=== PATIENT | male | born 1990 | race Caucasian/White ===

== ENCOUNTER 2017-10-27 03:15 | Inpatient (IN) | payer MEDICAID, OTHER ==
[~2017-10-27] VITALS: Ht 182.9 cm; Wt 86.2 kg
[2017-10-27] MEDS ORDERED: LIDOCAINE HCL 1%/EPI 1:200,000/PF 10 ML VIAL INJ ONE (03:45)
[2017-10-27] MEDS ORDERED: POVIDONE-IODINE 10% 15 ML SOLUTION UD ONE (03:46)
[2017-10-27] MEDS ORDERED: ALBU8HFA IH (03:47)
[2017-10-27] MEDS ORDERED: HALOPERIDOL 5 MG TABLET PO PRN (04:45)
[2017-10-27] MEDS ORDERED: LORazepam 2 MG TABLET PO PRN (04:45)
[2017-10-27] MEDS ORDERED: ZOLPIDEM TARTRATE 10 MG TABLET PO PRN (04:45)
[2017-10-27 08:19] LABS: BASOPHILS % (AUTO) 2.1 % (0.0-2.0); EOSINOPHILS % (AUTO) 0 % (1.0-6.0); HEMATOCRIT 47.1 % (41-53); HEMOGLOBIN 16.2 g/dL (13.5-17.5); LYMPHOCYTES % (AUTO) 28.4 % (22.0-44.0); MEAN CORPUSCULAR HGB CONC 34.4 G/dL (31.0-37.0); MEAN CORPUSCULAR VOLUME 90 fL (80-100); MONOCYTES # (AUTO) 0.5 K/uL (0.1-1.0); MONOCYTES % (AUTO) 7.4 % (2.0-9.0); NEUTROPHILS # (AUTO) 4.3 K/uL (1.8-7.7); NEUTROPHILS % (AUTO) 62.1 % (40.0-70.0); PLATELET COUNT (AUTO) 246 K/uL (150-450); RED BLOOD CELL COUNT(AUTO) 5.23 MIL/uL (4.50-5.90); RED CELL DISTRIBUTION WIDTH 14.2 % (11.5-14.5)
[2017-10-27 08:26] LABS: ANION GAP 9 mmol/L (8-16); CALCIUM, TOTAL 8.6 mg/dL (8.8-10.5); CARBON DIOXIDE 29 mmol/L (22-29); CHLORIDE 104 mmol/L (98-107); CREATININE 1.06 mg/dL (0.60-1.30); GLOMERULAR FILTR. RATE CALC > 60 mL/min (>60); GLUCOSE,RANDOM 86 mg/dL (70-110); SODIUM SERUM 142 mmol/L (136-145); UREA NITROGEN, BLOOD 9 mg/dL (7-18)
[2017-10-27 08:32] LABS: ALANINE AMINOTRANSFERASE 53 U/L (12-78); ALKALINE PHOSPHATASE 118 U/L (46-116); ASPARTATE AMINOTRANSFERASE 43 U/L (15-37); BILIRUBIN,TOTAL 0.4 mg/dL (0.1-1.0); TOTAL PROTEIN, SERUM 7.7 g/dL (6.4-8.2)
[2017-10-27 18:00] VITALS: BP 153/93
[2017-10-27 19:00] VITALS: BP 132/87
[2017-10-27] MEDS: AmLODIPine BESYLATE 5 MG TABLET PO SCH (19:00)
[2017-10-27] MEDS ORDERED: ALBUTEROL SULFATE HFA 90 MCG/PUFF 8 GM INHALER IH PRN (19:00)
[2017-10-27 20:00] VITALS: BP 140/90
[2017-10-27 21:00] VITALS: BP 128/76
[2017-10-27 22:00] VITALS: BP 130/78
[2017-10-28 02:02] VITALS: BP 123/76
[2017-10-28 06:46] VITALS: BP 125/76
[2017-10-28 08:31] LABS: CHOL/HDL RATIO 4.3 (4.2-7.3)
[2017-10-28] MEDS: AmLODIPine BESYLATE 5 MG TABLET PO SCH (09:00)
[2017-10-28] MEDS: OLANZapine 5 MG RAPDIS TABLET PO SCH ×2 (09:45→17:19)
[2017-10-28 10:00] VITALS: BP 119/78
[2017-10-28 14:00] VITALS: BP 133/82
[2017-10-28] MEDS ORDERED: IBUPROFEN 400 MG TABLET PO PRN (14:45)
[2017-10-28] MEDS ORDERED: ACETAMINOPHEN 325 MG TABLET PO PRN (14:45)
[2017-10-28 16:00] VITALS: BP 134/80
[2017-10-28 18:00] VITALS: BP 134/80
[2017-10-29 05:49] VITALS: BP 126/78
[2017-10-29 08:33] VITALS: BP 128/80
[2017-10-29] MEDS ORDERED: MAG HYDROX/AL HYDROX/SIMETH ES 30 ML SUSPENSION UDCUP PO PRN (08:45)
[2017-10-29 08:48] LABS: CHOL/HDL RATIO 4.7 (4.2-7.3); THYROID STIMULATING HORMONE 1.13 uIU/mL (0.36-3.74)
[2017-10-29] MEDS: OLANZapine 5 MG RAPDIS TABLET PO SCH (09:09)
[2017-10-29] MEDS ORDERED: OLAN5TAB30 PO (13:54)
== END 2017-10-29 13:30 | disposition home or self-care (01) | DRG 751 ==
LOC: EMS 03:16 → B3A 16:05
PROVIDERS: ADMIT Psychiatry & Neurology Psychiatry; ATTEND Psychiatry & Neurology Child & Adolescent Psychiatry
DX: F29 Unspecified psychosis not due to a substance or known physiological condition (principal); I10 Essential (primary) hypertension; E78.5 Hyperlipidemia, unspecified; F10.10 Alcohol abuse, uncomplicated; G43.909 Migraine, unspecified, not intractable, without status migrainosus; J45.909 Unspecified asthma, uncomplicated; Z88.0 Allergy status to penicillin; Z79.899 Other long term (current) drug therapy
CPT/HCPCS: 10120; 80074; 83036; 84443; 93005; 99285; G0480; J3490